=== PATIENT | female | born 1965 | race Two or more races ===

== ENCOUNTER 2025-01-21 16:09 | Emergency (ER) | payer OTHER ==
[~2025-01-21] VITALS: Ht 172.7 cm; Wt 79.8 kg
[2025-01-21 16:13] VITALS: BP 125/67
[2025-01-21] MEDS ORDERED: ACETAMINOPHEN 500 MG TABLET ONE (17:29)
[2025-01-21] MEDS ORDERED: IBUPROFEN 400 MG TABLET ONE (17:30)
[2025-01-21] MEDS: ACETAMINOPHEN 500 MG TABLET PO ONE (17:33)
[2025-01-21] MEDS: IBUPROFEN 400 MG TABLET PO ONE (17:33)
[2025-01-21 17:46] VITALS: BP 125/67; O2SAT 96
== END 2025-01-21 17:46 | disposition home or self-care (01) ==
LOC: ER 16:14
DX: S82.62XA Displaced fracture of lateral malleolus of left fibula, initial encounter for closed fracture (principal); J45.909 Unspecified asthma, uncomplicated; W01.0XXA Fall on same level from slipping, tripping and stumbling without subsequent striking against object, initial encounter; Y93.89 Activity, other specified; Y92.89 Other specified places as the place of occurrence of the external cause; Y99.9 Unspecified external cause status
CPT/HCPCS: 73600; A4606; A4663; A9150